=== PATIENT | female | born 1975 | race Caucasian/White ===

== ENCOUNTER 2020-11-09 18:32 | Inpatient (IN) | payer OTHER, SELFPAY ==
[2020-11-09 19:44] VITALS: BMI 24.1
--- NOTE | 2020-11-09 21:05 | HO.PSYADMNOT ---
HPI Chief Complaint: unspecified schizophrenia spectrum Diagnostics Vital Signs (24Hr): Body Mass Index 24.1 Meds/Allergies Meds Home Medications Acetaminophen (Acetaminophen 325 Mg Tablet) 650 mg PO Q6H PRN PRN Reason: Headache/Pain Mild Scale (1-3) Al Hydroxide/Mg Hydroxide (Magnesium Hydrox/Alum Hydrox 30 Ml Oral.Susp) 30 ml PO Q6H PRN PRN Reason: Heartburn/Nausea Hydroxyzine HCl (Hydroxyzine Hcl 25 Mg Tablet) 25 mg PO Q6H PRN PRN Reason: Anxiety Magnesium Hydroxide (Milk Of Magnesia 30 Ml Oral.Susp) 30 ml PO DAILY PRN PRN Reason: Constipation Nicotine (Nicotine 14 Mg Patch.Td24) 14 mg TRANSDERMA DAILY NIDHI Nicotine Polacrilex (Nicotine Polacrilex 2 Mg Gum) 4 mg BUCCAL Q2H PRN PRN Reason: Nicotine Cravings Trazodone HCl (Trazodone Hcl 50 Mg Tablet) 50 mg PO BEDTIME PRN PRN Reason: Insomnia Allergies Allergies Allergy/AdvReac Type Severity Reaction Status Date / Time No Known Allergies Allergy Verified 11/09/20 20:19
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
[2020-11-10 06:00] VITALS: BP 122/82; PULSE 105; RESP 16; TEMP 36.1; O2SAT 98
[2020-11-10] MEDS: Acetaminophen 325 MG TABLET 650 MG PO (06:31)
[2020-11-10] MEDS: Buprenorphine/Naloxone 4/1 mg FILM 1 FILM SUBLINGUAL ×2 (07:13→13:17)
[2020-11-10] MEDS: Nicotine Polacrilex 2 MG GUM 4 MG BUCCAL ×2 (07:13→17:10)
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
[2020-11-10] MEDS: Nicotine 14 MG PATCH.TD24 TRANSDERMA (10:42)
[2020-11-10] MEDS: ARIPiprazole 10 MG TABLET PO (13:17)
[2020-11-10] MEDS: clonazePAM 1 MG TABLET PO ×2 (13:17→17:10)
--- NOTE | 2020-11-10 14:08 | PM.PSYDC ---
DS: Providers Provider Date of Service: 11/10/20 Date of admission: 11/09/20 18:32 Date of discharge: 11/11/20 Primary care physician: Unknown Physician Attending physician on admission: Mynor Todd Consults: 11/09/20 20:19 Consult to Hospitalist Routine Consulting Provider: Hospitalist Reason For Exam: New admit from [facility] Attending physician on discharge: Mynor Todd DS: Diagnosis Discharge Diagnosis (1) Chronic post-traumatic stress disorder (PTSD): Status: Chronic (2) MDD (major depressive disorder), recurrent episode, moderate: Status: Chronic (3) TBI (traumatic brain injury): Status: Chronic DS: Medications Discharge Medications Home Medications: Home Medications Medication Instructions Recorded Confirmed aripiprazole 10 mg tablet 1 tab PO QAM 11/10/20 11/10/20 baclofen 20 mg tablet 1 tab PO TID 11/10/20 11/10/20 buprenorphine 8 mg-naloxone 2 mg 1 strip SUBLINGUAL BID 11/10/20 11/10/20 sublingual film (Suboxone) clonazepam 1 mg tablet 1 tab PO TID PRN 11/10/20 11/10/20 clonidine HCl 0.1 mg tablet 0.1 mg PO DIRECTED 11/10/20 11/10/20 dextroamphetamine-amphetamine 30 1 tab PO BID 11/10/20 11/10/20 mg tablet fluoxetine 20 mg capsule (Prozac) 1 cap PO QAM 11/10/20 11/10/20 DS: Summary Hospital Course Hospital Course: Patient is a 44-year-old female with history of PTSD, depression, substance abuse in sustained remission on Suboxone and TBI December 2019, who presents after becoming dysregulated with auditory hallucinations. Patient denied any AH or disorganized behavior. However after fiction and nonfiction prose writer met with pt again and she accepted her partner's Louie's report, and now considering that she may have been delusional and just not remembered it; fiction and nonfiction prose writer discussed how lack of sleep, stress and being emotionally triggered all mixed with a TBI could produce dissociate and disorganized moments. Pt agrees and says she will discuss this with her outpt provider.? Brass And Wind Instrument Repairer spoke with patient's boyfriend of 16 years Louie who agrees that patient is fully safe, not a danger to anyone herself or others and appropriate to come home. ?He says that she did not sleep much the night before and the next day was having auditory hallucinations of people saying sexualized things to her. ?He says that she was crying and upset and intermittently yelling racial slurs. ?He feels like the police over reacted and should not have brought her to the emergency room and that she did not need to be he psychiatrically hospitalized. ?He says this is the 2nd time this has happened and it never happened before her TBI, last December 2019. Louie says that she has been doing better the past weeks since she got a job where she is performing well. ?He also says that she is sober, takes her medications and is not a racist at all and normally never uses racial epithets; he denies any history of her being unsafe or suicidal. ?He said he is happy to come pick her up whenever she can be discharged. Whatever patient was experiencing, it seems to have fully resolved; she is organized in speech and behavior and w/out any SI or AVH. Her behavior is appropriate and she demonstrates good impulse control. Pt takes her medications regularly and has outpatient providers with whom she has good rapport. And she returns to supportive partner. Patient is not in imminent risk for harm to self or others and does not rise to the level of involuntary commitment? Status at Discharge Functional status at discharge: independent ambulation Overall status at discharge: patient is back to baseline Time Spent with Patient Time attestation: Total time spent providing and/or coordinating discharge services: Time spent: Less than 30 minutes Discharge Plan Discharge Patient Disposition: Home, Self-Care Discharge Diagnosis: PTSD, chronic Referrals: Vannessa Marie [Other] - 11/17/20 Brandon Mayer [Other] - 11/17/20 Physician,Unknown [Primary Care Provider] - 1 Week Discharge Medications: Continued clonidine HCl 0.1 mg tablet 0.1 mg PO DIRECTED RF: 0 clonazepam 1 mg tablet 1 tab PO TID PRN (Reason: anxiety) RF: 0 baclofen 20 mg tablet 1 tab PO TID RF: 0 dextroamphetamine-amphetamine 30 mg tablet 1 tab PO BID RF: 0 fluoxetine [Prozac] 20 mg capsule 1 cap PO QAM RF: 0 aripiprazole 10 mg tablet 1 tab PO QAM RF: 0 buprenorphine-naloxone [Suboxone] 8-2 mg film 1 strip sublingual BID RF: 0 Discharge Orders: Discharge Order (Routine); Ordered 11/11/20 Ordered By: Mynor Todd Diet: regular diet Activity on Discharge: As tolerated Stand Alone Forms: Patient Portal Discharge page Care Plan Goals: Maintain mood and safe behaviors Take medications as prescribed Continue to pursue sobriety Practice coping skillsContinue with outpatient providers and reach out to them as needed Health Concerns: Mood stability and behaviors Plan of Treatment: Follow up with your PCP and psychiatric provider regarding above concerns Take medications as prescribed Assessment: Risk assessment at time of discharge:? Patient was interviewed prior to discharge and found to be fully oriented and without any SI or HI. Patient has insight and demonstrates good judgment in terms of wanting to pursue treatment. Patient is not in imminent risk of harm to self or others and has a safety plan that includes presenting to the closest ER or calling 911 if feeling unsafe.? Patient has been observed closely by nursing and unit staff throughout admission; patient has not engaged in any behaviors that suggest dangerousness to self or others and has demonstrated appropriate behaviors and impulse control.
[2020-11-10] MEDS: Amphetamine Mixed Salts 20 MG TABLET 30 MG PO (14:50)
[2020-11-10] MEDS: FLUoxetine HCl 20 MG CAPSULE PO (14:50)
[2020-11-10] MEDS: Buprenorphine/Naloxone 8/2 mg FILM 1 FILM SUBLINGUAL (16:00)
[2020-11-10 17:01] VITALS: BP 94/59; PULSE 66; RESP 16; TEMP 36.1; O2SAT 98
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
[2020-11-11 06:00] VITALS: BP 121/79; PULSE 80; TEMP 36.6; O2SAT 97
[2020-11-11] MEDS: Amphetamine Mixed Salts 20 MG TABLET 30 MG PO (09:07)
[2020-11-11] MEDS: clonazePAM 1 MG TABLET PO (09:07)
[2020-11-11] MEDS: FLUoxetine HCl 20 MG CAPSULE PO (09:07)
[2020-11-11] MEDS: Nicotine Polacrilex 2 MG GUM 4 MG BUCCAL (09:07)
[2020-11-11] MEDS: Buprenorphine/Naloxone 8/2 mg FILM 1 FILM SUBLINGUAL (09:07)
[2020-11-11] MEDS: ARIPiprazole 10 MG TABLET PO (09:07)
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
== END 2020-11-11 12:20 | disposition home or self-care (01) | DRG 751 ==
PROVIDERS: Admitting Provider Psychiatry & Neurology Psychiatry; Visit Provider Psychiatry & Neurology Psychiatry
DX: F33.1 Major depressive disorder, recurrent, moderate (principal); F11.20 Opioid dependence, uncomplicated; F43.12 Post-traumatic stress disorder, chronic; F90.9 Attention-deficit hyperactivity disorder, unspecified type; F17.210 Nicotine dependence, cigarettes, uncomplicated; Z71.6 Tobacco abuse counseling; Z87.820 Personal history of traumatic brain injury; Z79.899 Other long term (current) drug therapy

== ENCOUNTER 2021-07-13 11:29 | Inpatient (IN) | payer OTHER, SELFPAY ==
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
[2021-07-13] MEDS: Nicotine Polacrilex 2 MG GUM 4 MG BUCCAL (16:48)
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
[2021-07-13 20:48] VITALS: BP 98/58; PULSE 88; RESP 16; TEMP 36.3; O2SAT 95
[2021-07-14 06:00] VITALS: BP 104/62; PULSE 86; RESP 18; TEMP 36.4; O2SAT 97
[2021-07-14] MEDS: Nicotine Polacrilex 2 MG GUM 4 MG BUCCAL ×4 (06:33→16:21)
[2021-07-14 07:18] LABS: Estimated Average Glucose 100 mg/dL; Hemoglobin A1c % 5.1 %
[2021-07-14 07:25] LABS: Alanine Aminotransferase 113 U/L (0-31); Alkaline Phosphatase 70 U/L (39-117); Aspartate Amino Transferase 85 U/L (5-31); Bilirubin Direct 0.2 mg/dL (0.0-0.5); Bilirubin Total 0.3 mg/dL (0.0-1.0); Cholesterol 189 mg/dL; HDL Cholesterol 72 mg/dL; LDL Cholesterol Calculated 104 mg/dl; Total Protein 7.5 g/dL (6.5-8.0); Triglycerides 66 mg/dL
[2021-07-14] MEDS: Buprenorphine/Naloxone 8/2 mg FILM 1 FILM SUBLINGUAL ×2 (08:41→19:35)
[2021-07-14 09:17] LABS: Reflex LDLD? No
[2021-07-14] MEDS: Multivitamin TABLET 1 TAB PO (09:28)
[2021-07-14] MEDS: clonazePAM 1 MG TABLET PO ×2 (09:28→19:35)
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
[2021-07-14 19:39] VITALS: BP 117/76; PULSE 89; RESP 18; TEMP 36.2; O2SAT 99
[2021-07-15 06:00] VITALS: BP 98/57; PULSE 82; RESP 18; TEMP 36.4; O2SAT 98
[2021-07-15] MEDS: Nicotine Polacrilex 2 MG GUM 4 MG BUCCAL ×3 (06:11→16:18)
[2021-07-15] MEDS: Multivitamin TABLET 1 TAB PO (08:21)
[2021-07-15] MEDS: clonazePAM 1 MG TABLET PO ×2 (08:21→20:17)
[2021-07-15] MEDS: Buprenorphine/Naloxone 8/2 mg FILM 1 FILM SUBLINGUAL ×2 (08:22→16:02)
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
[2021-07-15 16:08] VITALS: BP 121/80; PULSE 122; RESP 20; TEMP 36.7; O2SAT 99
[2021-07-16 06:00] VITALS: BP 103/70; PULSE 88; RESP 18; TEMP 36.3; O2SAT 97
[2021-07-16] MEDS: Nicotine Polacrilex 2 MG GUM 4 MG BUCCAL ×4 (06:03→15:54)
[2021-07-16] MEDS: Buprenorphine/Naloxone 8/2 mg FILM 1 FILM SUBLINGUAL ×2 (07:04→15:54)
[2021-07-16] MEDS: clonazePAM 1 MG TABLET PO ×2 (09:38→19:59)
[2021-07-16 15:50] VITALS: BP 113/80; PULSE 99; TEMP 36.5; O2SAT 100
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
[2021-07-16 19:55] VITALS: PULSE 75; TEMP 36.6; O2SAT 96
[2021-07-17 06:00] VITALS: BP 99/69; PULSE 112; RESP 14; TEMP 36.3; O2SAT 98
[2021-07-17] MEDS: Nicotine Polacrilex 2 MG GUM 4 MG BUCCAL ×5 (06:28→18:53)
[2021-07-17] MEDS: Buprenorphine/Naloxone 8/2 mg FILM 1 FILM SUBLINGUAL ×2 (08:23→16:09)
[2021-07-17] MEDS: clonazePAM 1 MG TABLET PO ×2 (08:23→18:50)
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
[2021-07-17 18:45] VITALS: BP 142/92; PULSE 80; TEMP 36.4; O2SAT 98
[2021-07-17] MEDS: cloNIDine HCL 0.1 MG TABLET 0.05 MG PO (18:47)
[2021-07-17 19:11] VITALS: BP 142/92; PULSE 80; TEMP 36.5; O2SAT 100
[2021-07-18 06:00] VITALS: BP 108/72; PULSE 86; RESP 18; TEMP 37.1; O2SAT 98
[2021-07-18] MEDS: clonazePAM 1 MG TABLET PO (08:05)
[2021-07-18] MEDS: Buprenorphine/Naloxone 8/2 mg FILM 1 FILM SUBLINGUAL ×2 (08:05→16:01)
[2021-07-18] MEDS: Nicotine Polacrilex 2 MG GUM 4 MG BUCCAL ×3 (08:09→16:43)
[2021-07-18 09:27] LABS: TSH reflex Free T4 3.75 uIU/mL (0.32-4.0)
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
[2021-07-19] MEDS: Nicotine Polacrilex 2 MG GUM 4 MG BUCCAL (05:59)
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
[2021-07-19] MEDS: Buprenorphine/Naloxone 8/2 mg FILM 1 FILM SUBLINGUAL (09:24)
[2021-07-19] MEDS: Nicotine Polacrilex 2 MG GUM BUCCAL (09:52)
== END 2021-07-19 11:36 | disposition home or self-care (01) | DRG 751 ==
PROVIDERS: Admitting Provider Psychiatry & Neurology Psychiatry; Visit Provider Clinical Nurse Specialist Psychiatric/Mental Health, Adult
DX: F33.1 Major depressive disorder, recurrent, moderate (principal); F25.0 Schizoaffective disorder, bipolar type; F11.20 Opioid dependence, uncomplicated; F43.12 Post-traumatic stress disorder, chronic; Z87.820 Personal history of traumatic brain injury; F41.1 Generalized anxiety disorder
CPT/HCPCS: 36415; 80061; 80076; 83036; 84443